=== PATIENT | male | born 1955 | race Caucasian/White ===

== ENCOUNTER → 2016-07-18 | Outpatient (CLI) | payer BC ==
--- NOTE | 2016-07-18 08:42 | DIAGNOSTIC IMAGING REPORT ---
LEFT KNEE 4 OR MORE CLINICAL HISTORY: Left knee pain x 3-4 weeks, no specific trauma COMPARISON STUDY: None. FINDINGS: Mild cartilage space narrowing within the medial compartments of the bilateral knees. No fracture or dislocation. No significant left knee effusion. Soft tissues are unremarkable. IMPRESSION: No fractures. Mild osteoarthritis. Electronically signed by: Clifton Dunn M.D. 07/18/2016 8:40 AM Dictated Date/Time: 07/18/2016 8:34 AM
== END | disposition home or self-care (01) ==
LOC: C.RDSM 07:52
PROVIDERS: ATTEND Internal Medicine
DX: M17.12 Unilateral primary osteoarthritis, left knee (principal)

== ENCOUNTER 2017-11-19 04:15 | Emergency (ER) | payer BC ==
[~2017-11-19] VITALS: Ht 177.8 cm; Wt 72.3 kg
[2017-11-19 04:23] VITALS: Ht 177.8 cm; Wt 72.3 kg
[2017-11-19] MEDS ORDERED: KETOROLAC TROMETHAMINE 30 MG/ML VIAL IV STA (04:39)
[2017-11-19] MEDS ORDERED: SODIUM CHLORIDE 0.9% 1000ML 1,000 ML IV STA (04:39)
[2017-11-19] MEDS ORDERED: ONDANSETRON INJ 2 MG/ML 2 ML VIAL IV STA (04:39)
[2017-11-19] MEDS ORDERED: OPTIRAY 320 IV PRN (04:45)
[2017-11-19] MEDS ORDERED: SIMV40TA2 PO (04:48)
[2017-11-19] MEDS ORDERED: ASPI1TAB48 PO (04:49)
[2017-11-19 05:02] LABS: BASO % 0.1 %; BASO ABS # 0.01 K/uL (0-0.2); HEMATOCRIT 42.4 % (42-52); HEMOGLOBIN 14.2 g/dL (14.0-18.0); IG# 0.02 K/uL (0.00-0.02); LYMPH % 8.5 %; LYMPH ABS # 0.93 K/uL (1.2-3.4); MEAN CELL VOLUME 92.2 fL (80-100); MEAN CORPUSCULAR HEMOGLOBIN 30.9 pg (25-34); MEAN CORPUSCULAR HGB CONC 33.5 g/dl (32-36); MEAN PLATELET VOLUME 10.3 fL (7.4-10.4); MONO % 6.3 %; MONO ABS # 0.69 K/uL (0.11-0.59); NEUT % 84.9 %; NEUT ABS # 9.28 K/uL (1.4-6.5); PLATELET COUNT 243 K/uL (130-400); RED CELL DISTRIBUTION WIDTH CV 13.1 % (11.5-14.5); RED CELL DISTRIBUTION WIDTH SD 43.8 fL (36.4-46.3); WHITE BLOOD COUNT 10.93 K/uL (4.8-10.8)
[2017-11-19 05:20] VITALS: O2SAT 94
[2017-11-19 05:26] LABS: ALBUMIN 4.2 gm/dl (3.4-5.0); CALCIUM 9.8 mg/dl (8.5-10.1); CREATININE 1.46 mg/dl (0.60-1.40); POTASSIUM 3.9 mmol/L (3.5-5.1); TOTAL PROTEIN 7.7 gm/dl (6.4-8.2)
--- NOTE | 2017-11-19 06:51 | EMERGENCY ROOM VISIT NOTE ---
History First contact with patient: 04:27 Chief Complaint: ABDOMINAL PAIN Stated Complaint: ABD PAIN, VOMITING Nursing Triage Summary: Pt ate supper in [facility] last night and had had severe N/V/D since with LLQ abd pain. History of Present Illness The patient is a 62 year old male who presents to the Emergency Room with complaints of left lower quadrant pain for the past few hours described as cramping, ranging in severity 7 out of 10. Nothing makes it better or worse. It does not radiate. Patient was of nausea and vomiting. No diarrhea. Patient tried to have a bowel movement and only a very little came out. He has had a hernia repair for 2 his abdomen. No other surgeries. Patient states he ate dinner [place] after dropping his daughter off and had a pulled pork wrapped with coleslaw and Macanese fries. He states about an hour after the symptoms started. Patient denies chest pain, dyspnea, fever, chills, cough, congestion, back pain, urinary symptoms, genitalia problems. Review of Systems An 10 system review of systems was completed with positives and pertinent negatives listed in the HPI. Past Medical/Surgical History Hyperlipidemia, hernia repair Social History Smoking Status: Never Smoker Smokeless Tobacco Use: No Alcohol Use: occasionally Drug Use: none Marital Status: Housing Status: lives with family Occupation Status: employed Current/Historical Medications Scheduled Aspirin (Aspirin Low Dose), 81 MG PO DAILY Simvastatin (Zocor), 40 MG PO QPM Physical Exam Vital Signs Date Time Temp Pulse Resp B/P (MAP) Pulse Ox O2 Delivery O2 Flow Rate FiO2 11/19/17 05:45 68 11/19/17 05:21 69 18 156/90 95 Room Air 11/19/17 05:20 94 Room Air 11/19/17 04:23 65 19 142/80 98 Room Air Physical Exam VITALS: Vitals are noted on the nurse's note and reviewed by myself. Vital signs reviewed. GENERAL: White male pacing the room, in no acute distress, nondiaphoretic, well- developed well-nourished. SKIN: The skin was without rashes, erythema, edema, or bruising. There is no tenting of the skin. Capillary reflex less than 2 seconds. HEAD: Normocephalic atraumatic. EARS: External auditory canals clear, tympanic membranes pearly joseph without erythema or effusion bilaterally. EYES: Pupils equal round and reactive to light and accommodation. Conjunctivae without injection, sclerae without icterus. Extraocular movements intact. NOSE: Patent, turbinates without inflammation or discharge. MOUTH: Mucous membranes moist. Pharynx without erythema or exudate. Uvula midline. Airway patent. Tongue does not deviate. NECK: Supple without nuchal rigidity. No lymphadenopathy. No thyromegaly. Cervical spine is nontender. No JVD. HEART: Regular rate and rhythm without murmurs gallops or rubs. LUNGS: Clear to auscultation bilaterally without wheezes, rales or rhonchi. No retractions or accessory muscle use. ABDOMEN: Positive bowel sounds x 4. Normal tympanic percussion. Soft, tender to palpation left lower quadrant, without masses or organomegaly. Rowe sign negative. No guarding or rebound tenderness. No CVA tenderness MUSCULOSKELETAL: No muscle atrophy, erythema, or edema noted. NEURO: Patient was alert and oriented to person place and time. Normal sensation to light and sharp touch. No focal neurological deficits. Medical Decision & Procedures Laboratory Results 11/19/17 04:50 Red Blood Count 4.60, Mean Corpuscular Volume 92.2, Mean Corpuscular Hemoglobin 30.9, Mean Corpuscular Hemoglobin Concent 33.5, Mean Platelet Volume 10.3, Neutrophils (%) (Auto) 84.9, Lymphocytes (%) (Auto) 8.5, Monocytes (%) (Auto) 6.3, Eosinophils (%) (Auto) 0.0, Basophils (%) (Auto) 0.1, Neutrophils # (Auto) 9.28, Lymphocytes # (Auto) 0.93, Monocytes # (Auto) 0.69, Eosinophils # (Auto) 0.00, Basophils # (Auto) 0.01 11/19/17 04:50 Test 11/19/17 04:50 11/19/17 06:20 White Blood Count 10.93 K/uL (4.8-10.8) Red Blood Count 4.60 M/uL (4.7-6.1) Hemoglobin 14.2 g/dL (14.0-18.0) Hematocrit 42.4 % (42-52) Mean Corpuscular Volume 92.2 fL (80-100) Mean Corpuscular Hemoglobin 30.9 pg (25-34) Mean Corpuscular Hemoglobin Concent 33.5 g/dl (32-36) Platelet Count 243 K/uL (130-400) Mean Platelet Volume 10.3 fL (7.4-10.4) Neutrophils (%) (Auto) 84.9 % Lymphocytes (%) (Auto) 8.5 % Monocytes (%) (Auto) 6.3 % Eosinophils (%) (Auto) 0.0 % Basophils (%) (Auto) 0.1 % Neutrophils # (Auto) 9.28 K/uL (1.4-6.5) Lymphocytes # (Auto) 0.93 K/uL (1.2-3.4) Monocytes # (Auto) 0.69 K/uL (0.11-0.59) Eosinophils # (Auto) 0.00 K/uL (0-0.5) Basophils # (Auto) 0.01 K/uL (0-0.2) RDW Standard Deviation 43.8 fL (36.4-46.3) RDW Coefficient of Variation 13.1 % (11.5-14.5) Immature Granulocyte % (Auto) 0.2 % Immature Granulocyte # (Auto) 0.02 K/uL (0.00-0.02) Anion Gap 12.0 mmol/L (3-11) Est Creatinine Clear Calc Drug Dose 52.3 ml/min Estimated GFR () 58.1 Estimated GFR (Non- 50.1 BUN/Creatinine Ratio 15.3 (10-20) Calcium Level 9.8 mg/dl (8.5-10.1) Total Bilirubin 1.1 mg/dl (0.2-1) Direct Bilirubin 0.2 mg/dl (0-0.2) Aspartate Amino Transf (AST/SGOT) 24 U/L (15-37) Alanine Aminotransferase (ALT/SGPT) 33 U/L (12-78) Alkaline Phosphatase 66 U/L (45-117) Total Protein 7.7 gm/dl (6.4-8.2) Albumin 4.2 gm/dl (3.4-5.0) Lipase 89 U/L (73-393) Urine Color YELLOW Urine Appearance CLEAR (CLEAR) Urine pH 6.5 (4.5-7.5) Urine Specific [place] 1.010 (1.000-1.030) Urine Protein TRACE (NEG) Urine Glucose (UA) NEG (NEG) Urine Ketones 1+ (NEG) Urine Occult Blood NEG (NEG) Urine Nitrite NEG (NEG) Urine Bilirubin NEG (NEG) Urine Urobilinogen NEG (NEG) Urine Leukocyte Esterase NEG (NEG) Urine RBC 0-4 /hpf (0-4) Urine WBC 1-5 /hpf (0-5) Urine Epithelial Cells 0-5 /lpf (0-5) Urine Bacteria NEG (NEG) Medications Administered Medications (Trade) Dose Ordered Sig/Max Route Start Time Stop Time Status Last Admin Dose Admin Ketorolac Tromethamine (Toradol Inj) 10 mg NOW STAT IV 11/19/17 04:39 11/19/17 04:41 DC 11/19/17 04:52 10 MG Ondansetron HCl (Zofran Inj) 4 mg NOW STAT IV 11/19/17 04:39 11/19/17 04:41 DC 11/19/17 04:52 4 MG Sodium Chloride 1,000 ml @ 999 mls/hr Q1H1M STAT IV 11/19/17 04:39 11/19/17 05:39 DC 11/19/17 04:52 999 MLS/HR ED Course Prior records/ancillary studies reviewed. Triage Nursing notes reviewed. Additional history obtained from family The patient's history was concerning for abdominal pain. Differential diagnosis: Etiologies such as appendicitis, diverticulitis, PUD, biliary pathology, UTI, pancreatitis, obstruction, mesenteric ischemia, aortic pathology, infections, inflammatory bowel disease, renal colic, as well as others were entertained. Physical examination findings: As above. ER treatment provided: Toradol, Zofran, IV fluids On reassessment the patient felt better. Diagnostics interpreted by me: The labs revealed hyperglycemia without DKA. Slightly elevated creatinine. Imaging studies: CT ABDOMEN & PELVIS With Contrast: 2 mm stone at the distal most left ureter with associated upstream mild hydroureteronephrosis and renal edema. Nonobstructing left renal stone noted measuring 3 mm. No evidence for bowel obstruction. Slight colonic wall thickening near the splenic flexure, possibly related to peristalsis. The small bowel has a normal course and caliber. Radiologist: Clifton Florentino MD Exam and history seem consistent with left renal colic. Patient's pain was under control. He felt much better. He was advised to take medications as directed, rest, stay well-hydrated and to strain his urine. He is advised to follow-up with family care or urology in a few days or here in the ER sooner for severe pain, fevers, vomiting, worsening signs. Patient was afebrile and nontoxic. No signs of UTI. Slightly elevated creatinine. Mild hyperglycemia. He was advised to have this rechecked with family care. By the evaluation outlined above emergent etiologies such as appendicitis, diverticulitis, PUD, biliary pathology, UTI, pancreatitis, obstruction, mesenteric ischemia, aortic pathology, infections, inflammatory bowel disease, as well as others were deemed relatively unlikely. The pt informed about the findings as listed above. All questions were answered and pleased with the treatment. Return instructions were outlined and the patient was discharged in stable condition. Outpatient prescription management: Home pack OxyIR and Zofran Referral: The patient was referred back to their primary care physician for follow-up in 2 to 3 days for a recheck of the current condition. Case reviewed with my attending The chart was completed utilizing [employer] Speech voice recognition software. Grammatical errors, random word insertions, pronoun errors, and incomplete sentences are an occassional consequence of this system due to software limitations, ambient noise, and hardware issues. Any formal questions or concerns about the content, text, or information contained within the body of this dictation should be directly addressed to the physician help desk assistant for clarification. Medical Decision As above Medication Reconcilliation Current Medication List: was personally reviewed by me Blood Pressure Screening Patient's blood pressure: Normal blood pressure Impression Primary Impression: Renal colic on left side Additional Impressions: Urolithiasis Hyperglycemia Departure Information Dispostion Home / Self-Care Condition GOOD Referrals Hema May MD (PCP) Patient Instructions My [facility] Additional Instructions DO NOT drive, drink alcohol, operate machinery, or perform dangerous activities today. You were given medications in the ER that can affect your ability to safely function or operate a vehicle. Your blood sugar and kidney tests are slightly elevated today. Recheck this with family care doctor this week. Oxycodone Immediate Release (OxyIR) 5mg: Take 1-2 pills every four hours for pain. Avoid alcohol, operating machinery or dangerous equipment, working on ladders or roofs, DRIVING, or situations where being under the influence may be dangerous. It is recommended to use an [id number]-lyoclyr stool softener such as Colace, 100mg twice daily while taking this medication to avoid constipation. Zofran 4 mg: Take one every six hours as needed for nausea. Avoid alcohol, operating machinery or dangerous equipment, working on ladders or roofs, DRIVING , or situations where being under the influence may be dangerous. Ibuprofen(Motrin, Advil) may be used for fever or pain. Use 600mg every six hours as needed. Take with food. Avoid using more than 2400mg in a 24 hour period. Do not use 2400mg per day for more than three consecutive days without physician direction. Prolonged inappropriate use can lead to stomach upset or ulcers. This medication can be taken if you need to drive, work, or perform activities which may be dangerous when taking narcotic pain medication. (AND/OR) Acetaminophen(Tylenol) may be used for fever or pain. Use 1000mg every six hours as needed. Avoid using more than 3000mg in a 24 hour period. This medication can be taken if you need to drive, work, or perform activities which may be dangerous when taking narcotic pain medication. Strain your urine and collect all the stones or debris for the urologists. Rest and avoid strenuous activity until your stone passes and symptoms resolve. Drink plenty of fluids. Continue current medications. Return to the ER for worsening abdominal or back pain, vomiting, fevers, passing out, or as needed. Follow up with urology in 2-3 days, call for an appointment. Problem Qualifiers
[2017-11-19] MEDS ORDERED: ONDA4TAB10 SL (06:55)
[2017-11-19] MEDS ORDERED: ONDANSETRON HOME PACK 4MG OD TAB PO ONE (07:00)
[2017-11-19] MEDS ORDERED: OXYCODONE IR HOME PACK PO ONE (07:00)
[2017-11-19 07:05] VITALS: BP 137/83; PULSE 57; O2SAT 98
--- NOTE | 2017-11-19 07:32 | DIAGNOSTIC IMAGING REPORT ---
CT OF THE ABDOMEN AND PELVIS WITH CONTRAST CLINICAL HISTORY: Left lower quadrant abdominal pain and vomiting. COMPARISON STUDY: None. TECHNIQUE: Following IV administration of 94 mL of [id number]-320, axial images of the abdomen and pelvis were obtained from the lung bases to the proximal femurs. Images were reviewed in the axial, sagittal, and coronal planes. IV contrast was administered without complication. A dose lowering technique was utilized adhering to the principles of ALARA. CT DOSE: 274.68 mGy.cm FINDINGS: The heart is moderately enlarged. The liver, spleen, adrenal glands, right kidney and the pancreas are normal. There is no biliary or pancreatic ductal dilatation. A 4 mm calculus within the lower pole of the left kidney is noted. There is mild left hydroureteronephrosis due to a 3 mm distal left ureteral calculus located just proximal to the ureterovesical junction. There is no evidence for a bowel obstruction. Evaluation is difficult given a paucity of intra-abdominal fat. There are postoperative findings within the pelvis likely from hernia repair. There is colonic diverticulosis without evidence for acute diverticulitis. No lymphadenopathy is present. No suspicious osseous lesion is noted. IMPRESSION: 1. 3 mm distal left ureteral calculus which results in mild left hydroureteronephrosis with delayed nephrogram and mild perinephric infiltration. 2. 4 mm left renal calculus. 3. Colonic diverticulosis without evidence for acute diverticulitis although evaluation of the abdomen and pelvis difficult given a paucity of intra-abdominal fat. Electronically signed by: Lanre Perkins M.D. 11/19/2017 7:31 AM Dictated Date/Time: 11/19/2017 7:26 AM
[2017-11-20 12:00] LABS: ISTAT CREATININE 1.4 mg/dl (0.6-1.3); ISTAT IONIZED CALCIUM 1.22 mmol/l (1.12-1.32); ISTAT SODIUM 143 mEq/L (135-144)
== END 2017-11-19 07:15 | disposition home or self-care (01) ==
LOC: C.EDB 04:17 → C.EDA 07:15
DX: N20.2 Calculus of kidney with calculus of ureter (principal); R73.9 Hyperglycemia, unspecified; R11.2 Nausea with vomiting, unspecified; R10.32 Left lower quadrant pain; Z79.82 Long term (current) use of aspirin; Z79.899 Other long term (current) drug therapy